=== PATIENT | female | born 1980 | race Caucasian/White ===

== ENCOUNTER → 2016-11-04 | Outpatient (CLI) | payer MEDICARE, OTHER ==
--- NOTE | 2016-11-04 15:51 | US ---
EXAMINATION TYPE: US pelvic complete DATE OF EXAM: 11/04/2016 3:32 PM COMPARISON: In pacs CT abdomen pelvis December 12, 2014. Prior pelvic ultrasound same date. CLINICAL HISTORY: R10.2 LFT PELVIC PAIN,N83.20 PREVIOUS OVARIAN CYST. Intermittent left pelvic pain, history of ovarian cysts, patient has IUD, 3, para 3 TECHNIQUE: Transabdominal (TA) pelvic ultrasound. Date of LMP: 1 week ago EXAM MEASUREMENTS: Uterus: 7.4 x 4.0 x 5.0 cm Endometrial Stripe: 0.5 cm Right Ovary: 3.0 x 2.1 x 2.3 cm Left Ovary: 3.1 x 1.9 x 1.9 cm TECHNOLOGIST IMPRESSION: 1. Uterus: Anteverted 2. Endometrium: appears wnl, IUD appears in place 3. Right Ovary: multiple cystic areas with largest measuring 1.1cm 4. Left Ovary: multiple cystic areas with largest measuring 1.2cm 5. Bilateral Adnexa: small amount of free fluid seen in right adnexa 6. Posterior cul-de-sac: wnl Uterus is anteverted in shape. Centrally in the uterus there is linear hyperechoic structure system w ith IUD likely satisfactory in position seen best on image 1536 and 1792 within the endometrial canal . No suspicious thickening is seen. Tiny amount of free fluid is seen in pelvis towards the right adn exa. Both ovaries are normal in size. There are anechoic lesions scattered throughout both ovaries felt to reflect prominent follicles or simple small ovarian cysts all measuring 1.2 cm or smaller in size. N o concerning adnexal lesion is seen in current study. IMPRESSION: No suspicious adnexal lesion is identified in current study. Tiny amount of free fluid in right pelvis is nonspecific.
== END | disposition home or self-care (01) ==
LOC: RADUSWWP 14:19
PROVIDERS: ATTEND Obstetrics & Gynecology
DX: R10.2 Pelvic and perineal pain (principal)
CPT/HCPCS: 76856

== ENCOUNTER 2017-05-10 16:05 | Inpatient (IN) | payer MEDICARE, MEDICAID ==
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
[2017-05-10] MEDS ORDERED: HALOPERIDOL LACTATE 5 MG/ML 1 ML VIAL IM ONE (21:03)
[2017-05-10] MEDS ORDERED: HALOPERIDOL LACTATE 5 MG/ML 1 ML VIAL ONE (21:04)
[2017-05-10] MEDS ORDERED: LORazepam 2 MG/ML SYRINGE IM ONE (21:04)
[2017-05-10] MEDS ORDERED: LORazepam 2 MG/ML SYRINGE ONE (21:04)
[2017-05-10] MEDS ORDERED: MAGNESIUM HYDROXIDE 2,400 MG/10 ML CUP PO PRN (21:44)
[2017-05-10] MEDS ORDERED: ACETAMINOPHEN TAB 325 MG TAB PO PRN (21:44)
[2017-05-10] MEDS ORDERED: MAG HYDROX/AL HYDROX/SIMETH 30 ML CUP PO PRN (21:44)
[2017-05-10] MEDS ORDERED: OLANZapine 10 MG TAB PO ONE (22:00)
[2017-05-11 08:28] LABS: Basophils % (A) 1 %; CHCM 33.9; Eosinophils # (A) 0.2 k/uL (0-0.7); Eosinophils % (A) 3 %; HCT 42.4 % (34.0-46.0); HDW 2.78; Luc # (Auto) 0.11; Luc % (Auto) 2; Lymphocytes # (A) 1.2 k/uL (1.0-4.8); Lymphocytes % (A) 20 %; MCH 31.3 pg (25.0-35.0); MCHC 32.9 g/dL (31.0-37.0); MCV 95.2 fL (80.0-100.0); Mean Platelet Volume 8.7; Monocytes # (A) 0.4 k/uL (0-1.0); Monocytes % (A) 7 %; Neutrophils # (A) 4.1 k/uL (1.3-7.7); Neutrophils % (A) 68 %; RBC 4.45 m/uL (3.80-5.40); RDW 14.1 % (11.5-15.5); WBC (Perox) 6.07
[2017-05-11 08:47] LABS: ALT 23 U/L (9-52); AST 15 U/L (14-36); Alkaline Phosphatase 49 U/L (38-126); Anion Gap 9 mmol/L; Blood Urea Nitrogen 7 mg/dL (7-17); Calcium 9.2 mg/dL (8.4-10.2); Carbon Dioxide 24 mmol/L (22-30); Chloride 109 mmol/L (98-107); Glucose 85 mg/dL (74-99); Non-African American GFR(MDRD) >60 (>60 ml/min/1.73 sqM); Sodium 142 mmol/L (137-145); Total Bilirubin 0.3 mg/dL (0.2-1.3); Total Protein 5.9 g/dL (6.3-8.2)
[2017-05-11] MEDS ORDERED: OLANZapine 10 MG TAB PO SCH (09:00)
[2017-05-11] MEDS: ARIPiprazole 15 MG TAB PO SCH ×2 (13:13→21:48)
[2017-05-11] MEDS: NICOTINE 21MG/24HR PATCH TRANSDERM SCH ×2 (19:32→19:36)
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
[2017-05-12] MEDS: ARIPiprazole 15 MG TAB PO SCH ×2 (10:04→22:23)
[2017-05-12] MEDS: NICOTINE 21MG/24HR PATCH TRANSDERM SCH (10:05)
[2017-05-12] MEDS ORDERED: OLANZapine 5 MG TAB PO PRN (12:43)
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
[2017-05-13] MEDS: ARIPiprazole 15 MG TAB PO SCH ×2 (09:56→20:59)
[2017-05-13] MEDS: NICOTINE 21MG/24HR PATCH TRANSDERM SCH (09:57)
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
[2017-05-14] MEDS ORDERED: ARIPiprazole 400 MG VIAL IM ONE (10:00)
[2017-05-14] MEDS: NICOTINE 21MG/24HR PATCH TRANSDERM SCH (10:43)
[2017-05-14] MEDS: ARIPiprazole 15 MG TAB PO SCH ×2 (10:43→20:52)
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
[2017-05-15] MEDS: ARIPiprazole 15 MG TAB PO SCH ×2 (09:39→20:40)
[2017-05-15] MEDS: NICOTINE 21MG/24HR PATCH TRANSDERM SCH (09:40)
--- NOTE | 2017-05-15 16:10 | P.PN ---
Progress Note - Text Date of service: 05/15/2017 Chief complaint: "I want to go home " Subjective: The patient has been seen today as follow-up, chart reviewed, case discussed with the treatment team. Patient slept about 4 hours last night. Patient has been not going to groups and other unit activities. Patient reports fair appetite problems. The patient generally minimized any psychiatric symptoms, but she presented very paranoid and she refused to see me in the office but she accepted to talk while we are walking in the unit. She requested to go home and reports stabilization of all her symptoms. She denies S/H ideation. According to nursing report, the patient still has hallucinations and looks internally preoccupied. Patient denies any sleep or appetite problems but nursing report slept only 4 hours. The patient is compliant with her medications and denies any adverse reactions. Review of other systems: Patient denies any physical symptoms besides what has been mentioned above. No breathing problems, no chest pain reported today. Objective: Vitals has been reviewed. Mental status examination; Appearance: The patient appears older than stated age, disheveled, no specific features. Gait/posture: Normal arm swinging: No abnormal movements. Attitude and behavior: not engaged, not cooperative, poor eye contact. Motor activity: increased psychomotor activity Speech:pressured Mood: anxious Affect:labile Thought form: preoccupied with discharge. Impoverished Thought content: Paranoid. Denies suicidal thoughts, denies homicidal thoughts, denies intentions or plans. Perception: Denies any auditory or visual hallucinations Attention: No impairment. Insight: Patient has limited insight about her psychiatric disorder. Judgment: Patient has limited judgment about her psychiatric treatment. Assessment: Schizophrenia VS. Schizoaffective disorder Unspecified psychosis Plan: Continue with inpatient psychiatric hospitalization for monitoring and continue treatment. Continue group therapy and other unit activities. Continue psychiatric medications: Abilify maintena received 2 days ago. Continue with tapering down Abilify as per Dr. Hunter orders continue follow up
[2017-05-16] MEDS: NICOTINE 21MG/24HR PATCH TRANSDERM SCH (09:34)
[2017-05-16] MEDS: ARIPiprazole 15 MG TAB PO SCH (09:34)
--- NOTE | 2017-05-16 13:22 | P.PN ---
Progress Note - Text Date of service: 05/16/2017 Chief complaint: "I'm feeling good " Subjective: The patient has been seen today as follow-up, chart reviewed, case discussed with the treatment team. Patient slept about 6 hours last night. Patient has been not going to groups and other unit activities. Patient reports good appetite problems. The patient continued to be superficially engaged and very evasive with her answers. She still looks paranoid and guarded. She denies feeling depressed or suicidal and he denies any drastic mood swings. She denies hearing voices or any other hallucinations and no delusions could be elicited. The patient was preoccupied with discharge. The patient is compliant with her medications and denies any adverse reactions. Review of other systems: Patient denies any physical symptoms besides what has been mentioned above. No breathing problems, no chest pain reported today. Objective: Vitals has been reviewed. Mental status examination; Appearance: The patient appears older than stated age, disheveled, no specific features. Gait/posture: Normal gait, Normal arm swinging: No abnormal movements. Attitude and behavior: not fully engaged, not fully cooperative, poor eye contact. Motor activity: increased psychomotor activity Speech:normal rate and rhythm Mood: anxious Affect:labile Thought form: preoccupied with discharge. Impoverished Thought content: Paranoid. Denies suicidal thoughts, denies homicidal thoughts, denies intentions or plans. Perception: Denies any auditory or visual hallucinations Attention: No impairment. Insight: Patient has limited insight about her psychiatric disorder. Judgment: Patient has limited judgment about her psychiatric treatment. Assessment: Schizophrenia VS. Schizoaffective disorder Unspecified psychosis Plan: Continue with inpatient psychiatric hospitalization for monitoring and continue treatment. Continue group therapy and other unit activities. Continue psychiatric medications: Abilify maintena received 3 days ago. Continue with tapering down Abilify as per Dr. Hunter orders continue follow up
[2017-05-17 06:17] VITALS: BP 97/49; PULSE 43; RESP 12; TEMP 98.5
[2017-05-17] MEDS: NICOTINE 21MG/24HR PATCH TRANSDERM SCH (09:11)
[2017-05-17] MEDS: ARIPiprazole 15 MG TAB PO SCH (09:11)
[2017-05-17] MEDS ORDERED: ARIPiprazole 15 MG TAB PO SCH (09:16)
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
== END 2017-05-17 12:17 | disposition home or self-care (01) | DRG 885 ==
LOC: EC 16:05 → 3MHU 20:49
PROVIDERS: ADMIT Psychiatry & Neurology Psychiatry; ATTEND Psychiatry & Neurology Psychiatry
DX: F25.9 Schizoaffective disorder, unspecified (principal); R45.851 Suicidal ideations; F23 Brief psychotic disorder; F70 Mild intellectual disabilities; F41.9 Anxiety disorder, unspecified; R45.1 Restlessness and agitation; F39 Unspecified mood [affective] disorder; F29 Unspecified psychosis not due to a substance or known physiological condition; F51.5 Nightmare disorder; G47.9 Sleep disorder, unspecified; F22 Delusional disorders; R45.850 Homicidal ideations; F17.200 Nicotine dependence, unspecified, uncomplicated; Z63.4 Disappearance and death of family member; Z91.83 Wandering in diseases classified elsewhere; Z63.79 Other stressful life events affecting family and household; Z91.19 Patient's noncompliance with other medical treatment and regimen
CPT/HCPCS: 80053; 80306; 81025; 82075; 84443; 85025

== ENCOUNTER → 2018-05-03 | Outpatient (CLI) | payer MEDICARE, OTHER ==
--- NOTE | 2018-05-04 13:46 | ECHOF ---
Referral Reason:R94.31 Abnormal EKG MEASUREMENTS -------- HEIGHT: 157.5 cm WEIGHT: 63.5 kg BP: RVIDd: 2.0 cm (< 3.3) IVSd: 0.7 cm (0.6 - 1.1) LVIDd: 4.9 cm (3.9 - 5.3) LVPWd: 0.7 cm (0.6 - 1.1) IVSs: 1.1 cm LVIDs: 3.5 cm LVPWs: 1.1 cm LA Diam: 3.4 cm (2.7 - 3.8) Ao Diam: 2.1 cm (2.0 - 3.7) AV Cusp: 1.5 cm (1.5 - 2.6) LA Diam: 3.3 cm (2.7 - 3.8) EPSS: 0.1 cm MV E Jimmy: 1.12 m/s MV DecT: 151 ms MV A Jimmy: 0.57 m/s MV E/A Ratio: 1.97 RAP: 5.00 mmHg RVSP: 26.28 mmHg MV EF SLOPE: 96.58 mm/s (70 - 150) MV EXCURSION: 1.49 cm (> 18.000) FINDINGS -------- Sinus rhythm. This was a technically adequate study. The left ventricle is mildly dilated. Left ventricular wall thickness is normal. Overall left muna tricular systolic function is low-normal with, an EF between 50 - 55 %. The right ventricle is normal in size. The left atrial size is normal. The right atrial size is normal. The aortic valve is trileaflet, and appears structurally normal. No aortic stenosis or regurgitation. Mild mitral regurgitation is present. Mild tricuspid regurgitation present. There is no evidence of pulmonary hypertension. The right v entricular systolic pressure, as measured by Doppler, is 26.28mmHg. The aortic root size is normal. There is a small, generalized pericardial effusion present. CONCLUSIONS -------- 1. The left ventricle is mildly dilated. 2. Overall left ventricular systolic function is low-normal with, an EF between 50 - 55 %. 3. The right ventricle is normal in size. 4. The left atrial size is normal. 5. The right atrial size is normal. 6. The aortic valve is trileaflet, and appears structurally normal. No aortic stenosis or regurgitati on. 7. Mild mitral regurgitation is present. 8. Mild tricuspid regurgitation present. 9. There is no evidence of pulmonary hypertension. 10. The right ventricular systolic pressure, as measured by Doppler, is 26.28mmHg. 11. The aortic root size is normal. 12. There is a small, generalized pericardial effusion present. MACHINE COIL ASSEMBLER: Zachary Caceres RDCS
== END | disposition home or self-care (01) ==
LOC: RADECHMAIN 14:10
PROVIDERS: ATTEND Family Medicine
DX: I08.1 Rheumatic disorders of both mitral and tricuspid valves (principal); I31.3 Pericardial effusion (noninflammatory)
CPT/HCPCS: 93306

== ENCOUNTER 2020-03-05 17:08 | Emergency (ER) | payer MEDICARE, OTHER ==
[2020-03-05 18:02] LABS: Appearance,Urine Clear (Clear); Bilirubin,Urine Negative (Negative); Blood,Urine Trace (Negative); Color,Urine Yellow; Glucose,Urine (UA) Negative (Negative); Ketones,Urine Trace (Negative); Leukocyte Esterase,Urine Large (Negative); Mucus,Urine Moderate /hpf; Nitrite,Urine Negative (Negative); PH, Urine 5.5 (5.0-8.0); Protein,Urine 1+ (Negative); RBC,Urine 2 /hpf (0-5); Specific Gravity,Urine 1.035 (1.001-1.035); Squamous Epithelial Cell,Urine 3 /hpf (0-4); Urobilinogen,Urine <2.0 mg/dL (<2.0); WBC,Urine 11 /hpf (0-5)
[2020-03-05 18:11] LABS: Amphetamine Screen,Urine Not Detected (NotDetected); Barbiturate Screen,Urine Not Detected (NotDetected); Benzodiazepines Screen,Urine Not Detected (NotDetected); Cocaine Screen,Urine Detected (NotDetected); Methadone Screen, Urine Not Detected (NotDetected); Opiate Screen,Urine Not Detected (NotDetected); Oxycodone Screen, Urine Not Detected (NotDetected); Phencyclidine Screen,Urine Not Detected (NotDetected); Tricyclic Antidepressant,Urine Not Detected (NotDetected); Urn Cannabinoid Scrn Not Detected (NotDetected)
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
[2020-03-05 21:46] VITALS: BP 102/46; PULSE 47; RESP 16; TEMP 97.7
[2020-03-07 16:17] LABS: C. trachomatis,PCR Negative (Neg,Equiv); Chlamydia trachomatis Source Urine; N. gonorrhoeae,PCR Negative (Neg,Equiv); Neisseria Source Urine
== END 2020-03-05 22:02 | disposition home or self-care (01) ==
LOC: EC 17:08
DX: T74.21XA Adult sexual abuse, confirmed, initial encounter (principal); F17.200 Nicotine dependence, unspecified, uncomplicated
CPT/HCPCS: 80306; 81001; 81025; 82075; 87086; 87491; 87591; 99285

== ENCOUNTER 2021-08-31 20:36 | Emergency (ER) | payer MEDICARE, OTHER ==
[2021-08-31 20:46] VITALS: BP 137/104; RESP 18; TEMP 98.3
[2021-08-31 20:50] VITALS: PULSE 61
--- NOTE | 2021-08-31 21:08 | ED ---
General Adult HPI - General Chief complaint: Abdominal Pain Stated complaint: Abd Pain Time Seen by Provider: 08/31/21 20:39 Source: patient, EMS, RN notes reviewed, old records reviewed Mode of arrival: EMS Limitations: no limitations - History of Present Illness Initial comments: 40-year-old female presents for evaluation of abdominal pain. Patient had an episode of abdominal pain prior to arrival and was generalized, lasted a short period and is currently resolved. She denies vomiting. Denies diarrhea or constipation. Denies dysuria or hematuria. She denies fever. She has no complaints time my evaluation. - Related Data Previous Rx's Medication Instructions Recorded ARIPiprazole [Abilify] 20 mg PO DAILY #30 tab 05/17/17 Nicotine 21Mg/24Hr Patch [Habitrol] 1 patch TRANSDERM DAILY patch 05/17/17 Allergies Allergy/AdvReac Type Severity Reaction Status Date / Time No Known Allergies Allergy Verified 03/05/20 17:16 Review of Systems ROS Statement: Those systems with pertinent positive or pertinent negative responses have been documented in the HPI. ROS Other: All systems not noted in ROS Statement are negative. Past Medical History Past Medical History: No Reported History Additional Past Medical History / Comment(s): Depression, schizophrenia, anxiety History of Any Multi-Drug Resistant Organisms: None Reported Past Surgical History: No Surgical Hx Reported Past Anesthesia/Blood Transfusion Reactions: No Reported Reaction Past Psychological History: Depression, Schizophrenia Smoking Status: Current every day smoker Past Alcohol Use History: None Reported Past Drug Use History: None Reported General Exam Limitations: no limitations General appearance: alert, in no apparent distress Head exam: Present: atraumatic, normocephalic Eye exam: Present: normal appearance, PERRL ENT exam: Present: normal exam Neck exam: Present: normal inspection. Absent: tenderness, meningismus Respiratory exam: Present: normal lung sounds bilaterally. Absent: respiratory distress, wheezes Cardiovascular Exam: Present: regular rate, normal rhythm GI/Abdominal exam: Present: soft. Absent: distended, tenderness, rebound, rigid Extremities exam: Present: normal inspection, normal capillary refill. Absent: pedal edema Neurological exam: Present: alert, oriented X3, CN II-XII intact. Absent: motor sensory deficit Psychiatric exam: Present: normal affect, normal mood Skin exam: Present: warm, dry, intact. Absent: cyanosis, diaphoretic Course Vital Signs 08/31/21 08/31/21 20:41 20:46 Temperature 98.3 F Pulse Rate 52 L 61 Respiratory 18 18 Rate Blood Pressure 137/104 O2 Sat by Pulse 100 100 Oximetry Medical Decision Making - Medical Decision Making 40-year-old female with an episode of abdominal pain, resolved at the time my evaluation. Urinalysis does show some rare bacteria and several white blood cell counts. The patient is not having any urinary symptoms, will await culture results. X-ray performed which is negative for obstruction or intraperitoneal free air. I did discuss strict return parameters for this patient of her abdominal pain should return she should develop fever or vomiting. Any new or worsening symptoms she should return to the emergency department. She should follow-up with her primary care physician. - Lab Data Lab Results 08/31/21 08/31/21 Range/Units 21:03 21:03 Urine Color Yellow Urine Appearance Cloudy H (Clear) Urine pH 5.0 (5.0-8.0) Ur Specific [place] 1.019 (1.001-1.035) Urine Protein Trace H (Negative) Urine Glucose (UA) Negative (Negative) Urine Ketones Negative (Negative) Urine Blood Negative (Negative) Urine Nitrite Negative (Negative) Urine Bilirubin Negative (Negative) Urine Urobilinogen <2.0 (<2.0) mg/dL Ur Leukocyte Esterase Moderate H (Negative) Urine RBC 1 (0-5) /hpf Urine WBC 11 H (0-5) /hpf Ur Squamous Epith Cells 8 H (0-4) /hpf Urine Bacteria Rare H (None) /hpf Cellular Casts 3 (0) /lpf Hyaline Casts 3 H (0-2) /lpf Urine Mucus Occasional H (None) /hpf Urine HCG, Qual Not Detected (Not Detectd) Disposition Clinical Impression: Abdominal pain Disposition: HOME SELF-CARE Condition: Fair Instructions (If sedation given, give patient instructions): Abdominal Pain (ED) Is patient prescribed a controlled substance at d/c from ED?: No Referrals: John Adams DO [Primary Care Provider] - 1-2 days Time of Disposition: 21:38
[2021-08-31 21:21] LABS: Appearance,Urine Cloudy (Clear); Bacteria,Urine Rare /hpf; Bilirubin,Urine Negative (Negative); Blood,Urine Negative (Negative); Cellular Casts,Urine 3 /lpf (0); Color,Urine Yellow; Glucose,Urine (UA) Negative (Negative); Hyaline Casts,Urine 3 /lpf (0-2); Ketones,Urine Negative (Negative); Leukocyte Esterase,Urine Moderate (Negative); Mucus,Urine Occasional /hpf; Nitrite,Urine Negative (Negative); Protein,Urine Trace (Negative); RBC,Urine 1 /hpf (0-5); Specific Gravity,Urine 1.019 (1.001-1.035); Squamous Epithelial Cell,Urine 8 /hpf (0-4); Urobilinogen,Urine <2.0 mg/dL (<2.0); WBC,Urine 11 /hpf (0-5)
--- NOTE | 2021-08-31 21:32 | XR ---
EXAMINATION TYPE: XR KUB DATE OF EXAM: 08/31/2021 COMPARISON: NONE HISTORY: Abdominal pain TECHNIQUE: 2 views upright FINDINGS: There is no evidence of intestinal obstruction or pneumoperitoneum. Lung bases are clear. There are no pathologic calcifications. There is no sign of a mass. IMPRESSION: Nonacute abdomen.
== END 2021-08-31 22:08 | disposition home or self-care (01) ==
LOC: EC 20:36
DX: R10.84 Generalized abdominal pain (principal); F17.200 Nicotine dependence, unspecified, uncomplicated
CPT/HCPCS: 74018; 81001; 81025; 87086; 99284

== ENCOUNTER 2023-03-27 19:17 | Emergency (ER) | payer MEDICARE, OTHER ==
--- NOTE | 2023-03-27 20:39 | ED ---
Abdominal Pain HPI - General Chief Complaint: Abdominal Pain Stated Complaint: Abdominal Pain Time Seen by Provider: 03/27/23 19:22 Source: patient Mode of arrival: EMS Limitations: no limitations - History of Present Illness Initial Comments: This patient is a 42-year-old woman who presents to have evaluation of intermittent left sided abdominal pains that she states have been coming and going for years now. Patient states that they had recurred earlier today but now have resolved again. They can be severe. She has a difficult time characterizing them. She has not noted worsening or relieving factors. No associated symptoms. MD Complaint: abdominal pain -: year(s) Location: LLQ Radiation: none Migration to: no migration Severity: moderate Consistency: intermittent Improves With: nothing Worsens With: nothing Associated Symptoms: denies other symptoms - Related Data Home Medications Medication Instructions Recorded Confirmed Levothyroxine Sodium [Synthroid] 88 mcg PO DAILY 03/27/23 03/27/23 medroxyPROGESTERone [Depo-Provera] 150 mg IM Q84D 03/27/23 03/27/23 Previous Rx's Medication Instructions Recorded ARIPiprazole [Abilify] 20 mg PO DAILY #30 tab 05/17/17 Allergies Allergy/AdvReac Type Severity Reaction Status Date / Time control pill(unknown) Allergy Unknown Uncoded 03/27/23 22:07 Review of Systems ROS Statement: Those systems with pertinent positive or pertinent negative responses have been documented in the HPI. ROS Other: All systems not noted in ROS Statement are negative. Constitutional: Denies: fever Respiratory: Denies: cough, dyspnea Cardiovascular: Denies: chest pain, palpitations, edema Gastrointestinal: Denies: abdominal pain, nausea, vomiting, diarrhea, constipation Genitourinary: Denies: dysuria, hematuria Musculoskeletal: Denies: back pain Skin: Denies: rash Neurological: Denies: headache, weakness, numbness Past Medical History Past Medical History: No Reported History Additional Past Medical History / Comment(s): Depression, schizophrenia, anxiety History of Any Multi-Drug Resistant Organisms: None Reported Past Surgical History: No Surgical Hx Reported Past Anesthesia/Blood Transfusion Reactions: No Reported Reaction Past Psychological History: Anxiety, Depression, Schizophrenia Smoking Status: Current every day smoker Past Alcohol Use History: None Reported Past Drug Use History: None Reported General Exam Limitations: no limitations General appearance: alert, in no apparent distress Head exam: Present: atraumatic, normocephalic Eye exam: Present: normal appearance. Absent: scleral icterus, conjunctival injection Respiratory exam: Present: normal lung sounds bilaterally. Absent: respiratory distress, wheezes, rales, rhonchi, stridor Cardiovascular Exam: Present: regular rate, normal rhythm, normal heart sounds. Absent: systolic murmur, diastolic murmur, rubs, gallop GI/Abdominal exam: Present: soft, tenderness (There is mild diffuse tenderness without rebound or guarding). Absent: distended, guarding, rebound, rigid, mass, pulsatile mass Extremities exam: Present: normal inspection, normal capillary refill. Absent: pedal edema, calf tenderness Back exam: Present: normal inspection. Absent: CVA tenderness (R), CVA tenderness (L) Neurological exam: Present: alert Skin exam: Present: warm, dry, intact, normal color. Absent: rash Course Vital Signs 03/27/23 03/27/23 03/27/23 19:18 21:00 23:11 Temperature 97.6 F 97.8 F Pulse Rate 70 64 60 Respiratory 18 18 16 Rate Blood Pressure 138/73 117/60 124/74 O2 Sat by Pulse 100 100 100 Oximetry Medical Decision Making - Medical Decision Making This patient is a 42-year-old woman presenting with abdominal pain. Given that there is mild degree of tenderness diffusely throughout the abdomen computed tomography scan is obtained which I interpreted as being negative for obstruction, free air, or significant fluid. There does appear to be degree of constipation. Was pt. sent in by a medical professional or institution (, PA, CELL EFFICIENCY SUPERVISOR, urgent care, hospital, or halfway...) When possible be specific @ -[No] Did you speak to anyone other than the patient for history (EMS, parent, family, police, friend...)? What history was obtained from this source @ -[No] Did you review nursing and triage notes (agree or disagree)? Why? @ -[I reviewed and agree with nursing and triage notes] Were old charts reviewed (outside hosp., previous admission, EMS record, old EKG, old radiological studies, urgent care reports/EKG's, halfway records)? Report findings @ -[No old charts were reviewed] Differential Diagnosis (chest pain, altered mental status, abdominal pain women, abdominal pain men, vaginal bleeding, weakness, fever, dyspnea, syncope, heada unruly, dizziness, GI bleed, back pain, seizure, CVA, palpatations, mental health, musculoskeletal)? @ -[Differential Abdominal Pain Women: Appendicitis, Cholecystitis, diverticulosis, ischemic bowel, pancreatitis, hepatitis, UTI, gastroenteritis, AAA, incarcerated hernia, bowel obstruction, constipation, inflammatory bowel, hepatitis, peptic ulcer disease, splenic infarction, perforated viscus, vulvitis, ovarian torsion, PID, kidney stone, placenta abruption, this is not meant to be an all-inclusive list EKG interpreted by me (3pts min.). @ -[ X-rays interpreted by me (1pt min.). @ -[None done] CT interpreted by me (1pt min.). @ -[As above U/S interpreted by me (1pt. min.). @ -[None done] What testing was considered but not performed or refused? (CT, X-rays, U/S, labs)? Why? @ -[None] What meds were considered but not given or refused? Why? @ -[None] Did you discuss the management of the patient with other professionals ( professionals i.e. , PA, CELL EFFICIENCY SUPERVISOR, lab, RT, psych nurse, social service director, body trimmer, teacher, health officer, block and case maker)? Give summary @ -[No] Was smoking cessation discussed for >3mins.? @ -[No] Was critical care preformed (if so, how long)? @ -[No] Were there social determinants of health that impacted care today? How? (Homelessness, low income, unemployed, alcoholism, drug addiction, t ransportation, low edu. Level, literacy, decrease access to med. care, mcc, rehab)? @ -[No] Was there de-escalation of care discussed even if they declined (Discuss DNR or withdrawal of care, Hospice)? DNR status @ -[No] What co-morbidities impacted this encounter? (DM, HTN, Smoking, COPD, CAD, Cancer, CVA, ARF, Chemo, Hep., AIDS, mental health diagnosis, sleep apnea, morbid obesity)? @ -[None] Was patient admitted / discharged? Hospital course, mention meds given and route, prescriptions, significant lab abnormalities, going to OR and other pertinent info. @ -[The patient declined to have enema here, we'll try starting GoLYTELY tomorrow morning. Discharged with close follow-up and strict return parameters Undiagnosed new problem with uncertain prognosis? @ -[No] Drug Therapy requiring intensive monitoring for toxicity (Heparin, Nitro, Insulin, Cardizem)? @ -[No] Were any procedures done? @ -[No] Diagnosis/symptom? @ -[Acute on chronic abdominal pain Acute constipation Acute, or Chronic, or Acute on Chronic? @ -[default] Uncomplicated (without systemic symptoms) or Complicated (systemic symptoms)? @ -[Uncomplicated Side effects of treatment? @ -[No] Exacerbation, Progression, or Severe Exacerbation? @ -[No] Poses a threat to life or bodily function? How? (Chest pain, [place], [place], pneumonia, PE, COPD, DKA, ARF, appy, cholecystitis, CVA, Diverticulitis, Homicidal, Suicidal, threat to staff... and all critical care pts) @ -[No] - Lab Data Result diagrams: 03/27/23 20:28 03/27/23 20:28 Lab Results 03/27/23 03/27/23 03/27/23 Range/Units 20:28 20:28 21:10 WBC 8.3 (3.8-10.6) k/uL RBC 4.74 (3.80-5.40) m/uL Hgb 14.7 (11.4-16.0) gm/dL Hct 45.1 (34.0-46.0) % MCV 95.2 (80.0-100.0) fL MCH 31.1 (25.0-35.0) pg MCHC 32.7 (31.0-37.0) g/dL RDW 14.2 (11.5-15.5) % Plt Count 268 (150-450) k/uL MPV 9.3 Neutrophils % 67 % Lymphocytes % 25 % Monocytes % 6 % Eosinophils % 2 % Basophils % 0 % Neutrophils # 5.5 (1.3-7.7) k/uL Lymphocytes # 2.0 (1.0-4.8) k/uL Monocytes # 0.5 (0-1.0) k/uL Eosinophils # 0.1 (0-0.7) k/uL Basophils # 0.0 (0-0.2) k/uL Sodium 143 (137-145) mmol/L Potassium 3.3 L (3.5-5.1) mmol/L Chloride 109 H (98-107) mmol/L Carbon Dioxide 19 L (22-30) mmol/L Anion Gap 15 mmol/L BUN 9 (7-17) mg/dL Creatinine 0.69 (0.52-1.04) mg/dL Est GFR (CKD-EPI)AfAm >90 (>60 ml/min/1.73 sqM) Est GFR (CKD-EPI)NonAf >90 (>60 ml/min/1.73 sqM) Glucose 71 L (74-99) mg/dL Calcium 9.5 (8.4-10.2) mg/dL Total Bilirubin 0.4 (0.2-1.3) mg/dL AST 22 (14-36) U/L ALT 17 (4-34) U/L Alkaline Phosphatase 81 (38-126) U/L Total Protein 7.3 (6.3-8.2) g/dL Albumin 4.4 (3.5-5.0) g/dL Amylase 52 (30-110) U/L Lipase 129 (23-300) U/L Urine Color Light Yellow Urine Appearance Clear (Clear) Urine pH 6.0 (5.0-8.0) Ur Specific [place] 1.006 (1.001-1.035) Urine Protein Negative (Negative) Urine Glucose (UA) Negative (Negative) Urine Ketones Negative (Negative) Urine Blood Negative (Negative) Urine Nitrite Negative (Negative) Urine Bilirubin Negative (Negative) Urine Urobilinogen <2.0 (<2.0) mg/dL Ur Leukocyte Esterase Negative (Negative) Urine HCG, Qual (Not Detectd) 03/27/23 Range/Units 21:10 WBC (3.8-10.6) k/uL RBC (3.80-5.40) m/uL Hgb (11.4-16.0) gm/dL Hct (34.0-46.0) % MCV (80.0-100.0) fL MCH (25.0-35.0) pg MCHC (31.0-37.0) g/dL RDW (11.5-15.5) % Plt Count (150-450) k/uL MPV Neutrophils % % Lymphocytes % % Monocytes % % Eosinophils % % Basophils % % Neutrophils # (1.3-7.7) k/uL Lymphocytes # (1.0-4.8) k/uL Monocytes # (0-1.0) k/uL Eosinophils # (0-0.7) k/uL Basophils # (0-0.2) k/uL Sodium (137-145) mmol/L Potassium (3.5-5.1) mmol/L Chloride (98-107) mmol/L Carbon Dioxide (22-30) mmol/L Anion Gap mmol/L BUN (7-17) mg/dL Creatinine (0.52-1.04) mg/dL Est GFR (CKD-EPI)AfAm (>60 ml/min/1.73 sqM) Est GFR (CKD-EPI)NonAf (>60 ml/min/1.73 sqM) Glucose (74-99) mg/dL Calcium (8.4-10.2) mg/dL Total Bilirubin (0.2-1.3) mg/dL AST (14-36) U/L ALT (4-34) U/L Alkaline Phosphatase (38-126) U/L Total Protein (6.3-8.2) g/dL Albumin (3.5-5.0) g/dL Amylase (30-110) U/L Lipase (23-300) U/L Urine Color Urine Appearance (Clear) Urine pH (5.0-8.0) Ur Specific [place] (1.001-1.035) Urine Protein (Negative) Urine Glucose (UA) (Negative) Urine Ketones (Negative) Urine Blood (Negative) Urine Nitrite (Negative) Urine Bilirubin (Negative) Urine Urobilinogen (<2.0) mg/dL Ur Leukocyte Esterase (Negative) Urine HCG, Qual Not Detected (Not Detectd) Disposition Clinical Impression: Abdominal pain Disposition: HOME SELF-CARE Condition: Good Instructions (If sedation given, give patient instructions): Abdominal Pain (ED) Is patient prescribed a controlled substance at d/c from ED?: No Referrals: John Adams DO [Primary Care Provider] - 1-2 days
[2023-03-27 20:53] LABS: Basophils % (A) 0 %; Eosinophils # (A) 0.1 k/uL (0-0.7); Eosinophils % (A) 2 %; HCT 45.1 % (34.0-46.0); HGB 14.7 gm/dL (11.4-16.0); Lymphocytes % (A) 25 %; MCH 31.1 pg (25.0-35.0); MCHC 32.7 g/dL (31.0-37.0); MCV 95.2 fL (80.0-100.0); Mean Platelet Volume 9.3; Monocytes # (A) 0.5 k/uL (0-1.0); Monocytes % (A) 6 %; Neutrophils # (A) 5.5 k/uL (1.3-7.7); Neutrophils % (A) 67 %; Platelet Count 268 k/uL (150-450); RBC 4.74 m/uL (3.80-5.40); RDW 14.2 % (11.5-15.5); WBC 8.3 k/uL (3.8-10.6)
--- NOTE | 2023-03-27 21:14 | CT ---
EXAMINATION TYPE: CT abdomen pelvis wo con CT DLP: 603.1 mGycm, Automated exposure control for dose reduction was used. DATE OF EXAM: 03/27/2023 9:03 PM COMPARISON: 12/12/2014 CLINICAL INDICATION:Female, 42 years old with history of abdominal pain; left sides abdominal pain TECHNIQUE: Axial CT of the abdomen and pelvis. Sagittal and coronal reformats were created on a [employer] workstation. Contrast used: mL of , (none if empty) Oral contrast used: without Oral Contrast (none if empty) FINDINGS: LOWER CHEST: Unremarkable ABDOMEN LIVER: Hepatic cysts. GALLBLADDER AND BILE DUCTS: Unremarkable. PANCREAS: Unremarkable. SPLEEN: Unremarkable. ADRENAL GLANDS: Adrenal nodules versus adenomatous hypertrophy changes. Hounsfield units consistent w ith adrenal lipid rich adenomas. KIDNEYS AND URETERS: No evidence of hydronephrosis or renal calculus. The ureters are unremarkable. PELVIS BLADDER: Incompletely distended but grossly unremarkable. REPRODUCTIVE: Unremarkable. ABDOMEN & PELVIS STOMACH AND BOWEL: Small bowel gas and feces is seen throughout the abdomen. No evidence of bowel obs truction. The appendix is normal. PERITONEUM/RETROPERITONEUM: No evidence of pneumoperitoneum or free fluid. VASCULATURE: No evidence of aortic aneurysm. MUSCULOSKELETAL: No acute osseous abnormalities LYMPH NODES: No gross evidence for lymphadenopathy. SOFT TISSUE/ABDOMINAL WALL: Small fat-containing umbilical hernia. IMPRESSION: Small bowel gas and feces throughout the abdomen correlate for fecal stasis. No definitive acute proc ess to explain the patient's pain. No obstructive uropathy or evidence for diverticulitis.
[2023-03-27 21:15] LABS: ALT 17 U/L (4-34); AST 22 U/L (14-36); African American GFR (CKD) >90 (>60 ml/min/1.73 sqM); Albumin 4.4 g/dL (3.5-5.0); Alkaline Phosphatase 81 U/L (38-126); Amylase 52 U/L (30-110); Anion Gap 15 mmol/L; Blood Urea Nitrogen 9 mg/dL (7-17); Calcium 9.5 mg/dL (8.4-10.2); Carbon Dioxide 19 mmol/L (22-30); Chloride 109 mmol/L (98-107); Glucose 71 mg/dL (74-99); Lipase 129 U/L (23-300); Non-African American GFR(CKD) >90 (>60 ml/min/1.73 sqM); Potassium 3.3 mmol/L (3.5-5.1); Sodium 143 mmol/L (137-145); Total Bilirubin 0.4 mg/dL (0.2-1.3); Total Protein 7.3 g/dL (6.3-8.2)
[2023-03-27 21:51] LABS: Appearance,Urine Clear (Clear); Bilirubin,Urine Negative (Negative); Blood,Urine Negative (Negative); Color,Urine Light Yellow; Glucose,Urine (UA) Negative (Negative); Ketones,Urine Negative (Negative); Leukocyte Esterase,Urine Negative (Negative); Nitrite,Urine Negative (Negative); Protein,Urine Negative (Negative); Specific Gravity,Urine 1.006 (1.001-1.035); Urobilinogen,Urine <2.0 mg/dL (<2.0)
[2023-03-27] MEDS ORDERED: PEG 3350 (236 GM/BTL) + LYTES 4,000 ML BOTTLE PO ONE (23:00)
[2023-03-27 23:14] VITALS: BP 124/74; PULSE 60; RESP 16; TEMP 97.8
== END 2023-03-27 23:23 | disposition home or self-care (01) ==
LOC: EC 19:17
DX: K59.00 Constipation, unspecified (principal); R10.84 Generalized abdominal pain; F17.200 Nicotine dependence, unspecified, uncomplicated; Z88.9 Allergy status to unspecified drugs, medicaments and biological substances
CPT/HCPCS: 36415; 74176; 80053; 81003; 81025; 82150; 83690; 85025; 99285

== ENCOUNTER → 2025-01-22 | Outpatient (CLI) | payer MEDICARE, OTHER ==
--- NOTE | 2025-01-22 12:04 | MM ---
Reason for Exam: Screening (asymptomatic). Baseline mammogram. Patient History: Menarche at age 11. First Full-Term at age 23. Currently using Hormonal Contraceptives, for 10 years. Risk Values: Sadie 5 year model risk: 0.9%. NCI Lifetime model risk: 10.5%. Prior Study Comparison: Patient's first Mammogram. No prior studies available for comparison. Tissue Density: There are scattered areas of fibroglandular density. Findings: Analyzed By CAD. Right breast: There is no suspicious group of microcalcifications or new suspicious mass. Left breast: There is no suspicious group of microcalcifications or new suspicious mass. Overall Assessment: Negative, BI-RAD 1 Management: Screening Mammogram of both breasts in [address] [facility] will attempt to contact patient to return for supplemental views and ultrasound if indicated. Patient should continue monthly self-breast exams. A clinical breast exam by your physician is recommended on an annual basis. This exam should not preclude additional follow-up of suspicious palpable abnormalities. Note on Sadie scores and lifetime risk: 1. A Sadie score greater than 3% is considered moderate risk. If this is the case, consider specialist referral to assess eligibility for a risk reducing agent. 2. If overall lifetime risk for the development of breast cancer is 20% or higher, the patient may qualify for future screening with alternating mammogram and breast MRI. [facility], , 01/22/2025 12:01 PM. Electronically signed and approved by: Saurabh Anton DO
== END | disposition home or self-care (01) ==
LOC: RADMAMWWP 10:40
PROVIDERS: ATTEND Family Medicine
DX: Z12.31 Encounter for screening mammogram for malignant neoplasm of breast (principal); R92.323 Mammographic fibroglandular density, bilateral breasts; Z79.3 Long term (current) use of hormonal contraceptives
CPT/HCPCS: 77063; 77067